=== PATIENT | male | born 1985 | race Hispanic/Latino ===

== ENCOUNTER 2016-07-13 20:20 | Emergency (ER) | payer OTHER ==
[~2016-07-13] VITALS: Ht 175.3 cm; Wt 124.3 kg
[~2016-07-13 20:20] MED LIST: ALBUTEROL0.09 MG/A1 INH; IBUPROFEN800 M1 PO; LEVAQUIN500 M1 PO; MEDROL4 M2 PO; PREDNISONE10 MG PO; PROAIR HFA8.5 GM INH; VENTOLIN HFA18 GM INH; ZITHROMAX Z-PA250 M1 PO
--- NOTE | 2016-07-13 20:48 | ED DYSPNEA/ASTHMA COMPLAINT ---
History of Present Illness General Chief Complaint: Wheezing/Asthma Stated Complaint: ASTHMA ACTING UP, 98% AT [employer] Source: patient Exam Limitations: no limitations Vital Signs & Intake/Output Vital Signs & Intake/Output Vital Signs Date Time Temp Pulse Resp B/P Pulse O2 O2 Flow FiO2 Ox Delivery Rate 07/13 2128 98.1 92 18 149/72 98 Room Air 07/13 2112 96 07/13 2041 96 Room Air 07/13 2023 98.1 94 20 156/74 97 Room Air ED Intake and Output 07/14 0000 07/13 1200 Intake Total Output Total Balance Patient 274 lb Weight Allergies Coded Allergies: NO KNOWN ALLERGIES (06/02/16) Reconcile Medications Albuterol Sulfate (Proair Hfa) 90 MCG HFA.AER.AD 2 PUF INH Q4-6 PRN PRN DYSPNEA Albuterol Sulfate (Ventolin Hfa) 18 GM HFA.AER.AD 2 PUF INH Q4-6 PRN PRN asthma Albuterol Sulfate (Proair Hfa) 90 MCG HFA.AER.AD 2 PUF INH Q4-6 PRN PRN wheezing Albuterol Sulfate (Proair Hfa) 90 MCG HFA.AER.AD 2 PUF INH Q4-6 PRN PRN WHEEZING Albuterol Sulfate 2.5 MG/3 ML (0.083 %) VIAL.NEB 1 Vial INH/MARISSA Q4P PRN wheeing Methylprednisolone. (Medrol) 4 MG TAB.DS.PK 1 DP PO AD INFLAMMATION 6 on day 1 then reduce by one tablet daily until gone Triage Note: PT TO TRIAGE FOR ALBUTEROL INH REFILL. PT C/O SOB FOR 3HR, HX OF ASTHMA. VSS. O2SAT 97% ON RA. NO OTHER COMPLAINTS. Triage Nurses Notes Reviewed? 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 He went outside to catch his breath which helped a little bit and he realized who is out of his inhaler so he came in for treatment. He is requesting refill of his albuterol inhaler as well. He denies any chest pain, no fever no flulike illness. Symptoms are mild at this time. (MABEL MAYOTON) Past History Travel History Traveled to [place] past 21 day No Medical History Any Pertinent Medical History? see below for history Neurological: NONE EENT: NONE Cardiovascular: NONE Respiratory: asthma Gastrointestinal: NONE Hepatic: NONE Renal: NONE Musculoskeletal: NONE Psychiatric: NONE Endocrine: NONE Blood Disorders: NONE Cancer(s): NONE WHARF HELPER/Reproductive: NONE Surgical History Surgical History: non-contributory Psychosocial History What is your primary language Gabonese Tobacco Use: Quit >30 days ago Family History Hx Contributory? No (TON CAIN) Review of Systems Review of Systems Constitutional: Reports: see HPI. EENTM: Reports: no symptoms. Respiratory: Reports: see HPI. Cardiovascular: Reports: no symptoms. GI: Reports: no symptoms. Genitourinary: Reports: no symptoms. Musculoskeletal: Reports: no symptoms. Skin: Reports: no symptoms. Neurological/Psychological: Reports: no symptoms. Hematologic/Endocrine: Reports: no symptoms. Immunologic/Allergic: Reports: no symptoms. All Other Systems: Reviewed and Negative (TON CAIN) Physical Exam Physical Exam General Appearance: well developed/nourished Respiratory: DECREASED BREATH SOUNDS BILATERALLY, MILD EXPIRATORY WHEEZING, MILD PROLONGED EXPIRATORY PHASE. nO RESPIRATORY DISTRESS. Comments: Well-developed well-nourished no apparent distress. HEENT: Atraumatic, extraocular motion intact, normal exam Neck: Supple, no lymphadenopathy Back: Nontender Respiratory: No respiratory distress Heart: Regular rate and rhythm Extremities: No edema, full range of motion Neuro: Alert and oriented x3 Psych: Mood affect normal, normal memory normal judgment. Skin: Warm and dry, no rash on exposed skin Core Measures ACS in differential dx? No Severe Sepsis Present: No Septic Shock Present: No (TON CAIN) Progress Differential Diagnosis: asthma, AMI, altitude sickness, bronchitis, costochondritis, CHF, COPD, musculoskeletal pain, pericarditis, pulmonary embolism, pneumonia, pneumothorax, rib fracture, unstable angina Plan of Care: Current Medications Sig/Tano Start time Last Medication Dose Stop Time Status Admin Albuterol Sulfate 3 ML ONCE ONE 07/13 2099 AC (Proventil) 07/13 2100 Ipratropium [place] 2.5 ML ONCE ONE 07/13 2099 AC (Atrovent) 07/13 2100 Initial ED EKG: none Comments: DuoNeb treatment provided, patient reevaluated and is feeling better, we'll provide prescription for albuterol inhaler, to return with any symptoms. (TON CAIN) Departure Departure Disposition: HOME OR SELF CARE Condition: Stable Clinical Impression Primary Impression: Asthma exacerbation Referrals: LESVIA ISIDRO MD (PCP/Family) Additional Instructions: Use your albuterol inhaler for wheezing as directed Return with worsening shortness of breath, fever or flulike illness Departure Forms: Customer Survey General Discharge Information Prescriptions: Current Visit Scripts Albuterol Sulfate (Proair Hfa) 2 PUF INH Q4-6 PRN PRN WHEEZING #1 INHAL Albuterol Sulfate 1 Vial INH/MARISSA Q4P PRN wheeing #50 Vial (TON CAIN) PA/CRUSHING FOREMAN Co-Sign Statement Statement: ED Attending supervision documentation- [] I saw and evaluated the patient. I have also reviewed all the pertinent lab results and diagnostic results. I agree with the findings and the plan of care as documented in the PA's/CRUSHING FOREMAN's documentation. [x] I have reviewed the ED Record and agree with the PA's/CRUSHING FOREMAN's documentation. [] Additions or exceptions (if any) to the PAs/CRUSHING FOREMAN's note and plan are summarized below: [] (MILTON WANG,ZA Hawkins) Critical Care Note Critical Care Note Critical Care Time: non-applicable (TON CAIN)
[2016-07-13] MEDS ORDERED: PROAIR HFA8.5 GM INH (20:57)
[2016-07-13] MEDS ORDERED: ALBUTEROL2.5 MG/3 M INH/SOL (21:25)
[2016-07-13 21:29] VITALS: BP 149/72
== END 2016-07-13 21:29 ==
LOC: ERH 20:20
DX: J45.901 Unspecified asthma with (acute) exacerbation (principal)
CPT/HCPCS: 1263